=== PATIENT | female | born 1990 | race Caucasian/White ===

== ENCOUNTER 2024-03-12 22:57 | Emergency (ER) | payer SELFPAY ==
[2024-03-12 23:04] VITALS: BP 108/90
[2024-03-12] MEDS: MOTRIN 600 MG PO (23:31)
--- NOTE | 2024-03-12 23:40 | ED.SKININJ ---
HPI-Injury
General
Chief Complaint: Skin Surface Trauma
Source: patient
Exam Limitations: none
Time Seen by Provider: 03/12/24 23:13
Travel History
Have you had any contact with someone who has COVID-19?: No
Do you have any symptoms of coronavirus? Fever > 100 degrees, chills, cough, shortness of breath, sore throat, loss of taste or smell, muscle aches, or headache?: No
History of Present Illness-Injury
Is this injury a work related problem?: No
Is pt an associate of [facility]?: No
Initial Injury comments:
This is a 33 year old female that comes in with c/o cut to the left foot. State that she was walking at her neighbors and there was something sticking up between two outside lights. States that she cut her foot on the bottom. States that what she
stepped on did not move. States that her Tetanus has been more then 5 years. Denies any fever, chills, nausea, vomiting, diarrhea, headache, dizziness.
Past History
Past History
ED Past Medical History: Cancer (Spinal CA)
ED Past Surgical History: Appendectomy, , Gynecological (Partial hysterectomy) and Orthopedic (Spinal fusion)
Social History
Tobacco: Vaping (vaps now former smoker)
Alcohol: Occasional
Personal: Single
Living: with family
Review of Systems
Review of Systems
All Other Systems: ROS reviewed and negative except as documented in HPI and ROS
Constitutional: Reports no symptoms; Denies fever or chills
EENT: Reports no symptoms
Respiratory: Reports no symptoms
Cardiac: Reports no symptoms
ABD/GI: Denies abdominal pain, nausea, vomiting or diarrhea
: Reports no symptoms
Musculoskeletal: Reports no symptoms
Skin: Reports other (Laceration to the left arch on the planter aspect)
Neurological: Reports no symptoms
Psychiatric: Reports no symptoms
Skin Exam
Laceration
Left Plantar Foot:
Length in cm: 4.5
Orientation: C shaped
Type of Laceration: simple
Any active bleeding?: no active bleeding
Distal skin color and temperature: normal-warm & good color
Normal distal neurovascular exam: Yes
Range of motion: full
Phy Exam
General Physical Exam
General Presentation: well appearing and no apparent distress
General age: appears stated age
General Skin: warm and dry
General Habitus: normal
General Mental: alert
General Hydration: appears well hydrated
Eye Exam
Eye Exam: EOMI
Musculoskeletal Exam
Musculoskeletal Exam: full ROM and no edema
Skin Exam
Skin Exam: normal color, warm/dry, no petechia and laceration (to the left planter arch)
Psychiatric Exam
Psychiatric Exam: normal mood/affect
Course
Orders/Labs/Results
Orders:
Orders
03/12/24 23:21
Ibuprofen [Motrin] 600 mg PO NOW STA
03/12/24 23:39
Tetanus/Diphth/Acelpertussis [Adacel] 0.5 ml IM .ONCE ONE
Vital Signs
Initial and Last Documented VS:
Initial Vital Signs
Temp Pulse Resp BP Pulse Ox
97 F 106 20 108/90 100
03/12/24 23:04 03/12/24 23:04 03/12/24 23:04 03/12/24 23:04 03/12/24 23:04
Last Documented Vital Signs
Temp Pulse Resp BP Pulse Ox
97 F 106 20 108/90 100
03/12/24 23:04 03/12/24 23:04 03/12/24 23:04 03/12/24 23:04 03/12/24 23:04
Procedures
Laceration Closure
Left Plantar Foot:
Status of Wound: clean
Size of Wound in cm: 4.5
Description of Wound Edges: sharp
Preparation: cleaned with saline
Anesthesia: 1% Lidocaine with epi
Revision/Debridement: routine- no revision
Wound exploration: explored to base- no FB
Type of Closure: single layer closure
Skin Closure Material: 4-0 nylon
Number of sutures: 9
MDM/Problems Addressed
Differential Diagnosis Includes:
laceration of foot
MDM/Problems Addressed:
This is a 33 year old female that comes in with c/o laceration to the left foot after stepping on something in her neighbors yard. States that it was in between to lights sticking up and it did not move.
Laceration sutured and patient given a Tetanus shot. Will discharge home.
Chronic conditions affecting care:
NA
Acute Exacerbation and/or Progression of Chronic Illness:
NA
*Pulse Oximetry
Patient hypoxic: no
*EKG
Interpreted by ED Provider?: NA
Rate: EKG- N/A
*Pipe Line Inspector Interpretation
Rate: Pipe Line Inspector- N/A
*Critical Care Note
Total Time (30-74mins, 75-104mins- exclusive of procedures): Not Applicable
ED Attending Note
-
Portions of this chart may have been created with voice recognition software.� Occasional wrong word or��sound alike� substitutions may have occurred due to the inherent limitations of voice recognition software.
Discharge Plan
Departure
Patient Disposition: Home (Routine Discharge)
Date of Disposition: 03/12/24
Time of Disposition: 23:48
Patient with high blood pressure during this ER visit?: No
Condition: Good
Covid-19: Not Applicable
Discharge Problem:
Laceration of foot
Instructions: Laceration Repair With Stitches (DC)
Prescriptions:
No Action
cyclobenzaprine 10 MG tablet
10 mg PO TID
clonazepam 1 MG tablet
1 mg PO BID
prenat.vits,jaylyn,nci-kobe-tncyy [ Vitamin] 1 EACH tablet
1 tab PO DAILY
duloxetine 20 MG capsule,delayed release(DR/EC)
20 mg PO BID
pregabalin [Lyrica] 150 MG capsule
150 mg PO BID
oxycodone-acetaminophen 5 MG/325 MG tablet
1 - 2 tab PO Q4HPRN PRN (Reason: severe pain) Qty: 30 0RF
ibuprofen 600 MG tablet
600 mg PO Q4HPRN PRN (Reason: cramps) 0RF
Activity Restrictions/Additional Instructions:
As discussed, you have 9 sutures placed. Please keep this area dry for the next 24 hours. After this you may gently wash over the area but do not scrub. Please do not submerge in water. Please see the family doctor in the next 2 days for a wound
check and in 10-14 days for suture removal. Please keep covered to prevent any dirt during the day and remove the bandage at night. IF THERE IS ANY REDNESS, DRAINAGE OR YOU HAVE ANY OTHER CONCERNS PLEASE RETURN TO THE EMERGENCY ROOM.
Interventions
Interventions:
*Risk Screen - Suicide Last Done: 03/12/24 23:04
*General Assessment Last Done: 03/12/24 23:34
*Neglect/Abuse Screening Last Done: 03/12/24 23:04
ED- Fall Risk Assessment Last Done: 03/12/24 23:34
ED-Skin Assessment Last Done: 03/12/24 23:34
Discharge Date and Time
Print Language: ALBANIAN
[2024-03-12 23:46] VITALS: BP 110/75
[2024-03-12] MEDS: ADACEL 0.5 ML IM (23:49)
== END 2024-03-13 02:02 | disposition home or self-care (01) ==
LOC: EMR 22:57
PROVIDERS: EMERGENCY PHYSICIAN Emergency Medicine; FAMILY PHYSICIAN Internal Medicine
DX: S91.312A Laceration without foreign body, left foot, initial encounter (principal); W22.8XXA Striking against or struck by other objects, initial encounter; Y93.01 Activity, walking, marching and hiking; Y92.89 Other specified places as the place of occurrence of the external cause; Z23 Encounter for immunization; F17.290 Nicotine dependence, other tobacco product, uncomplicated; Z98.1 Arthrodesis status
CPT/HCPCS: 99282; 90471; 12002; 90715